=== PATIENT | female | born 1965 | race Caucasian/White ===

== ENCOUNTER 2022-11-18 17:39 | Emergency (ER) | payer BC ==
[2022-11-18 17:46] VITALS: BP 136/89; PULSE 71; TEMP 98.2
--- NOTE | 2022-11-18 18:05 | XR ---
EXAMINATION TYPE: XR ankle complete RT DATE OF EXAM: 11/18/2022 COMPARISON: None HISTORY: Injury, pain TECHNIQUE: 3 view right ankle FINDINGS: There is an oblique fracture of the distal metaphysis of the fibula. The ankle mortise appe ars intact. Soft tissue swelling is over the lateral malleolus Calcaneal heel spurs are present IMPRESSION: 1. Oblique fracture distal metaphyseal fibula with overlying soft tissue swelling
[2022-11-18] MEDS ORDERED: IBUPROFEN 600 MG STARTER PACK 4 TAB BTL PO STA (18:18)
--- NOTE | 2022-11-18 18:20 | ED ---
General Adult HPI - General Chief complaint: Extremity Injury, Lower Stated complaint: Rt ankle Injury Time Seen by Provider: 11/18/22 18:06 Source: patient, RN notes reviewed, old records reviewed Mode of arrival: wheelchair Limitations: no limitations - History of Present Illness Initial comments: 57-year-old female presents with right ankle injury, [place] had [place] her ankle and heard a crunching sensation. Patient denies any other injury. No anticoagulation. - Related Data Previous Rx's Medication Instructions Recorded HYDROcodone/APAP 5-325MG [Kimberly 1 tab PO Q6HR PRN #12 tab 11/18/22 5-325] Allergies Allergy/AdvReac Type Severity Reaction Status Date / Time cephalexin [From Keflex] Allergy Rash/Hives Verified 11/18/22 17:46 Review of Systems ROS Statement: Those systems with pertinent positive or pertinent negative responses have been documented in the HPI. ROS Other: All systems not noted in ROS Statement are negative. Past Medical History Past Medical History: Asthma History of Any Multi-Drug Resistant Organisms: None Reported Additional Past Surgical History / Comment(s): Gastric Bypass, Eye Past Psychological History: No Psychological Hx Reported Smoking Status: Never smoker Past Alcohol Use History: Occasional Past Drug Use History: None Reported General Exam Limitations: no limitations General appearance: alert, in no apparent distress Head exam: Present: atraumatic, normocephalic Eye exam: Present: normal appearance, PERRL ENT exam: Present: normal exam Neck exam: Present: normal inspection. Absent: tenderness, meningismus Respiratory exam: Present: normal lung sounds bilaterally. Absent: respiratory distress, wheezes Cardiovascular Exam: Present: regular rate, normal rhythm GI/Abdominal exam: Present: soft. Absent: distended, tenderness Extremities exam: Present: joint swelling (Swelling over the lateral malleolus, normal sensation, normal pulse exam, normal cap refill, no laceration) Course Vital Signs 11/18/22 17:43 Temperature 98.2 F Pulse Rate 71 Respiratory 20 Rate Blood Pressure 136/89 O2 Sat by Pulse 99 Oximetry Procedures - Orthopedic Splinting/Casting Injury #1 Side: right Lower Extremity Injury Location: ankle Lower Extremity Immobilizer: stirrup splint Other Orthopedic Equipment: crutches Medical Decision Making - Medical Decision Making Was pt. sent in by a medical professional or institution (, [place], [facility], urgent care, hospital, or assisted...) When possible be specific @ -No Did you speak to anyone other than the patient for history (EMS, parent, family, police, friend...)? What history was obtained from this source @ -No Did you review nursing and triage notes (agree or disagree)? Why? @ -I reviewed and agree with nursing and triage notes Were old charts reviewed (outside hosp., previous admission, EMS record, old EKG, old radiological studies, urgent care reports/EKG's, assisted records)? Report findings @ -No old charts were reviewed Differential Diagnosis (chest pain, altered mental status, abdominal pain women, abdominal pain men, vaginal bleeding, weakness, fever, dyspnea, syncope, headache, dizziness, GI bleed, back pain, seizure, CVA, palpatations, mental health, musculoskeletal)? @ -Differential Musculoskeletal Muscular strain, contusion, ligament sprain, fracture, arthritis, septic arthritis, bursitis, cellulitis, muscle spasm, nerve compression, DVT, arterial occlusion, herpes zoster, electrolyte abnormality, tumor.... This is not meant to be in all inclusive list EKG interpreted by me (3pts min.). @ -As above X-rays interpreted by me (1pt min.). @Minimally displaced distal fibular fracture on the right] CT interpreted by me (1pt min.). @ -None done U/S interpreted by me (1pt. min.). @ -None done What testing was considered but not performed or refused? (CT, X-rays, U/S, labs)? Why? @ -None What meds were considered but not given or refused? Why? @ -None Did you discuss the management of the patient with other professionals (professionals i.e. FAVIAN Sanabria, [employer], lab, RT, psych nurse, social media senior associate, manager enterprise, teacher, promotion officer, director of casework services)? Give summary @ -No Was smoking cessation discussed for >3mins.? @ -No Was critical care preformed (if so, how long)? @ -No Were there social determinants of health that impacted care today? How? (Homelessness, low income, unemployed, alcoholism, drug addiction, transportation, low edu. Level, literacy, decrease access to med. care, detention, rehab)? @ -No Was there de-escalation of care discussed even if they declined (Discuss DNR or withdrawal of care, Hospice)? DNR status @ -No What co-morbidities impacted this encounter? (DM, HTN, Smoking, COPD, CAD, Cancer, CVA, ARF, Chemo, Hep., AIDS, mental health diagnosis, sleep apnea, morbid obesity)? @ -None Was patient admitted / discharged? Hospital course, mention meds given and route, prescriptions, significant lab abnormalities, going to OR and other pertinent info. @ -[57-year-old female with ankle injury, has fracture to the lateral malleolus. Overall good alignment this is closed. Neurovascularly intact. Splint applied and given orthopedic follow-up. Undiagnosed new problem with uncertain prognosis? @ -No Drug Therapy requiring intensive monitoring for toxicity (Heparin, Nitro, Insulin, Cardizem)? @ -No Were any procedures done? @ -Yes, splinting Diagnosis/symptom? @ -[Lateral malleolus fracture on the right Acute, or Chronic, or Acute on Chronic? @ -Acute Uncomplicated (without systemic symptoms) or Complicated (systemic symptoms)? @ -default Side effects of treatment? @ -No Exacerbation, Progression, or Severe Exacerbation? @ -No Poses a threat to life or bodily function? How? (Chest pain, [place], [place], pneumonia, PE, COPD, DKA, ARF, appy, cholecystitis, CVA, Diverticulitis, Homicidal, Suicidal, threat to staff... and all critical care pts) @ -No Disposition Clinical Impression: Ankle fracture, right Disposition: HOME SELF-CARE Instructions (If sedation given, give patient instructions): Ankle Fracture (ED) Prescriptions: HYDROcodone/APAP 5-325MG [Kimberly 5-325] 1 tab PO Q6HR PRN #12 tab PRN Reason: Pain Is patient prescribed a controlled substance at d/c from ED?: No Referrals: Nonstaff,Physician [Primary Care Provider] - 1-2 days Timo Cruz DO [Doctor of Osteopathic Medicine] - 1-2 days Time of Disposition: 18:19
[2022-11-18 19:32] VITALS: RESP 18
== END 2022-11-18 19:32 | disposition home or self-care (01) ==
LOC: EC 17:39
DX: S82.61XA Displaced fracture of lateral malleolus of right fibula, initial encounter for closed fracture (principal); J45.909 Unspecified asthma, uncomplicated; Z88.1 Allergy status to other antibiotic agents; X50.1XXA Overexertion from prolonged static or awkward postures, initial encounter; Y93.01 Activity, walking, marching and hiking
CPT/HCPCS: 29515; 99283